=== PATIENT | male | born 1960 | race African-American/Black ===

== ENCOUNTER 2020-10-16 06:57 | Emergency (ER) | payer OTHER, SELFPAY ==
[2020-10-16 06:49] VITALS: BP 159/94; PULSE 78; RESP 16; TEMP 36.6; O2SAT 100
[2020-10-16 07:18] VITALS: BP 149/98; PULSE 76; RESP 18; O2SAT 100
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
[2020-10-16] MEDS: KETOROLAC 30 MG/ML VIAL (*BKC) IM (07:37)
[2020-10-16 08:00] VITALS: BP 149/98; PULSE 76; RESP 18; O2SAT 100
== END 2020-10-16 08:00 | disposition home or self-care (01) ==
PROVIDERS: Emergency Provider Emergency Medicine
DX: S39.012A Strain of muscle, fascia and tendon of lower back, initial encounter (principal); E11.9 Type 2 diabetes mellitus without complications; I10 Essential (primary) hypertension; V63.6XXA Passenger in heavy transport vehicle injured in collision with car, pick-up truck or van in traffic accident, initial encounter
CPT/HCPCS: 96372; 99283; J1885